=== PATIENT | female | born 1960 | race Caucasian/White ===

== ENCOUNTER 2019-04-02 18:10 | Inpatient (IN) | payer OTHER ==
[~2019-04-02] VITALS: Ht 165.1 cm; Wt 109.3 kg
[2019-04-02 18:30] VITALS: BP 158/95
--- NOTE | 2019-04-02 18:30 | NUR ---
EARLY CHILDHOOD ADMITTING NOTES RECEIVED PATIENT DIRECT ADMIT FROM [facility] ER VIA GURNEY ACCOMPANIED BY 2 EMT'S. ALERT AND ORIENTED X 4; APPEARS SHORT OF BREATH WITH RESPIRATIONS AT 20-24cpm. VERBALLY RESPONSIVE AND ABLE TO FOLLOW DIRECTIONS. ON OXYGEN AT 2L/MIN VIA NASAL CANNULA. VITAL SIGNS TAKEN. MD MADE AWARE OF ADMISSION. PLACED ON HIGH FOWLERS/SITTING POSITION. NO COMPLAINTS OF PAIN/DISCOMFORT OF THE TIME. CALL LIGHT IN REACH. NEEDS ATTENDED. WILL ENDORSE TO NOC SHIFT FOR CONTINUITY OF CARE.
[2019-04-02] MEDS ORDERED: LURA40TA PO (18:32)
[2019-04-02] MEDS ORDERED: HYDR12.5 PO (18:32)
[2019-04-02] MEDS ORDERED: ATOR40TA PO (18:32)
[2019-04-02] MEDS ORDERED: AMLO10TA7 PO (18:32)
[2019-04-02] MEDS ORDERED: ALBU8.5H8 IH (18:32)
[2019-04-02] MEDS ORDERED: FLUT16SP16 BNOSTRILS (18:32)
[2019-04-02] MEDS ORDERED: LOSA25TA27 PO (18:32)
--- NOTE | 2019-04-02 19:00 | NUR ---
MS RN OPENING NOTES Received patient, awake on Mcallister's position on bed. Admission routine done. Initial skin assessment done, patient claimed she has not skin issues identified, refused skin assessment at this time. Patient preferred to kept her pants on. Admission orders noted and carried out. IVF initiated as ordered. On O2 inhalation with SOB and dyspnea on exertion noted, saturating well. No complaints of pain made at this time. Kept on high-Mcallister's position on bed, call light within easy reach. Kept bed low and locked. On fall precautions. Provided BSC. Instructed patient on energy conservation. Will continue to monitor accordingly.
[2019-04-02] MEDS ORDERED: Z GUARD REMEDY 2 OZ OINT TP PRN (19:30)
[2019-04-02] MEDS ORDERED: MAGNESIUM HYDROXIDE 30 ML UDC PO PRN (19:30)
[2019-04-02] MEDS ORDERED: IV NS 0.9% 1,000 ML IV PRN (19:30)
[2019-04-02] MEDS ORDERED: MAG HYDROX/AL HYDROX/SIMETH 30 ML UDC PO PRN (19:30)
[2019-04-02] MEDS ORDERED: ONDANSETRON HCL/PF 4 MG/2 ML VIAL IVP PRN (19:30)
[2019-04-02] MEDS ORDERED: ACETAMINOPHEN 325 MG TABLET PO PRN (19:30)
[2019-04-02 20:00] VITALS: BP 145/88
[2019-04-02] MEDS ORDERED: DEXTROSE 50%-WATER 50 ML DISP.SYRIN IV PRN (20:00)
[2019-04-02] MEDS: AZITHROMYCIN 500 MG in IV D5W 250 ML IV SCH (20:16)
[2019-04-02] MEDS: methylPREDNISolone SOD SUCC 40 MG/ML VIAL IV SCH (20:26)
[2019-04-02] MEDS: IPRATROPIUM NEB FS 0.5 MG/2.5 ML AMPUL.NEB NEB SCH (21:15)
[2019-04-02] MEDS: ALBUTEROL FS 2.5 MG/0.5 ML VIAL.NEB NEB SCH (21:15)
[2019-04-02] MEDS: HYDROCODONE/APAP 5/325MG 1 EACH TABLET PO PRN (21:17)
--- NOTE | 2019-04-02 21:53 | NUR ---
MS RN NOTES MRSA specimen collected, source: Cece phelps. Called Lab for tile picker, spoke to Machining Supervisor Sumaya. Placed in specimen storage accordingly.
--- NOTE | 2019-04-02 22:09 | NUR ---
MS RN NOTES BS - 175mg/dl. Patient had eaten snacks 1 hr ago. Per patient, she does not take any insulin. Educated the patient the indication of this medication, benefits and possible S/E. Patient verbalized understanding, but insisted to refused meds. Instructed patient that another blood sugar check is scheduled before breakfast. Will continue to monitor the patient accordingly.
[2019-04-02] MEDS: BLOOD SUGAR DIAGNOSTIC 1 EACH STRIP IN SCH (22:29)
[2019-04-03] MEDS: BLOOD SUGAR DIAGNOSTIC 1 EACH STRIP IN SCH ×4 (06:36→22:19)
--- NOTE | 2019-04-03 07:09 | NUR ---
MS RN CLOSING NOTES Patient awake, on Mcallister's position on bed. With minimal labored breathing, on O2 via NC @ 2LPM, saturating well, no respiratory distress noted. All nursing needs attended, afebrile the whole shift. No new complaints made. Kept on bed clean, dry and comfortable. Call light within easy reach. Endorsed to the next shift.
[2019-04-03] MEDS: IPRATROPIUM NEB FS 0.5 MG/2.5 ML AMPUL.NEB NEB SCH ×3 (07:35→19:30)
[2019-04-03] MEDS: ALBUTEROL FS 2.5 MG/0.5 ML VIAL.NEB NEB SCH ×3 (07:35→19:30)
--- NOTE | 2019-04-03 07:47 | NUR ---
MS RN OPENING NOTE PATIENT IN BED RESTING COMFORTABLY. PATIENT BREATHING IS EVEN AND UNLABORED. PATIENT IN NO ACUTE DISTRESS. NO SOB NOTED. IV INTACT. HOB IS ELEVATED. SAFETY PRECAUTIONS IN PLACE. PATIENT BED IS LOCKED AND IN LOWEST POSITION. CALL LIGHT WITHIN REACH. WILL CONTINUE TO MONITOR.
[2019-04-03 08:00] VITALS: BP 130/78
[2019-04-03 08:08] LABS: BASOPHILS % (AUTO) 0.2 % (0.0-2.0); HEMATOCRIT 38 % (33-45); HEMOGLOBIN 12.5 g/dL (11.5-14.8); LYMPHOCYTES # (AUTO) 0.9 /CMM (0.8-4.8); LYMPHOCYTES % (AUTO) 8.5 % (20.0-44.0); MEAN CORPUSCULAR HGB CONC 33 g/dl (31.0-36.0); MEAN CORPUSCULAR VOLUME 91 fL (82-100); MONOCYTES # (AUTO) 0.3 /CMM (0.1-1.30); MONOCYTES % (AUTO) 2.7 % (2.0-12.0); NEUTROPHILS # (AUTO) 9.3 /CMM (1.8-8.9); NEUTROPHILS % (AUTO) 88.6 % (43.0-81.0); PLATELET COUNT (AUTO) 317 /CMM (150-450); RED BLOOD CELL COUNT(AUTO) 4.13 MIL/uL (4.0-5.2); WHITE BLOOD COUNT (AUTO) 10.4 K/uL (4.3-11.0)
[2019-04-03 08:23] LABS: BILIRUBIN,TOTAL 0.2 mg/dL (0.2-1.0); CALCIUM, SERUM 8.6 mg/dL (8.5-10.1); CREATININE 0.9 mg/dL (0.6-1.3); MAGNESIUM 1.9 mg/dL (1.8-2.4); PHOSPHORUS 2.8 mg/dL (2.5-4.9); TOTAL PROTEIN, SERUM 7.3 g/dL (6.4-8.2)
[2019-04-03 08:29] LABS: THYROID STIMULATING HORMONE 0.247 uIU/mL (0.358-3.74)
[2019-04-03] MEDS: methylPREDNISolone SOD SUCC 40 MG/ML VIAL IV SCH ×3 (09:28→17:11)
[2019-04-03] MEDS: FLUTICASONE PROPIONATE 16 GM BOTTLE NS SCH ×2 (09:29→17:11)
[2019-04-03] MEDS: AMLODIPINE BESYLATE 10 MG TABLET PO SCH (09:30)
[2019-04-03] MEDS: LOSARTAN POTASSIUM 25 MG TABLET PO SCH (09:30)
--- NOTE | 2019-04-03 10:08 | NUR ---
MS RN NOTE PATIENT WALKED WITH PT. PER PATIENT STATED THAT SHE HAD A BRIEF MOMENT OF LAPSE IN VISION WITH SHORTNESS OF BREATH. VITAL SIGNS TAKEN, WNL. PATIENT SATURATING 99% SPO2. PATIENT NOW RESTING IN BED, WITH MINIMAL LABORED BREATHING ON OXYGEN NC 2L. NOTIFIED VENKAT MORRIS. PER VENKAT ORDER FOR HEAD CT WITH OUT CONTRAST AND ORTHOSTATIC BP MONITOR.
[2019-04-03] MEDS: INSULIN REGULAR, HUMAN 100 UNIT/ML 3 ML VIAL SQ PRN ×3 (11:56→22:21)
[2019-04-03 12:30] VITALS: BP_SYST 139; BP_SYST 140; BP_SYST 145; BP_DIAS 74; BP_DIAS 83; BP_DIAS 87
--- NOTE | 2019-04-03 13:23 | NUR ---
SPOKE WITH VENKAT MORRIS REGARDING RESULT OF CT HEAD WITHOUT CONTRAST AND ORTHOSTATIC BP MEASURING. PER VENKAT CONTINUE TO DC IV FLUIDS. PATIENT IN NO ACUTE DISTRESS. WILL CONTINUE TO MONITOR AND FOLLOW THROUGH WITH ORDERS.
[2019-04-03 16:04] VITALS: BP 119/69
[2019-04-03] MEDS: ATORVASTATIN 40 MG TABLET PO SCH (17:11)
--- NOTE | 2019-04-03 18:39 | NUR ---
MS RN CLOSING NOTE PATIENT IN BED , RESTING COMFORTABLY. PATIENT IN NO ACUTE DISTRESS. PATIENT BREATHING IS EVEN WITH MINIMAL LABORED BREATHING. PATIENT ON OXYGEN NC AT 2L SATURATING >96% SPO2. PATIENT IV INTACT. PATIENT ABLE TO VERBALIZE NEEDS, NEEDS AND CONCERNS WERE ADDRESSED THROUGHOUT SHIFT. PATIENT KEPT CLEAN, DRY, AND COMFORTABLE THROUGHOUT SHIFT. PATIENT EXTREMITIES OFFLOADED ON PILLOWS. SAFETY PRECAUTIONS IN PLACE. HOB IS ELEVATED. PATIENT BED IS LOCKED AND IN LOWEST POSITION. CALL LIGHT WITHIN REACH. WILL ENDORSE CARE TO PM SHIFT FOR SERG.
[2019-04-03 20:00] VITALS: BP 123/66
[2019-04-03] MEDS: AZITHROMYCIN 500 MG in IV D5W 250 ML IV SCH (20:00)
--- NOTE | 2019-04-03 20:00 | NUR ---
received pt in bed, asleep, arousable ,no acute distress, denies any pain, only feeling tire and not slept for few days. kept on oxygen 2 liters, all needs attended. call light at reached, heplock intact and patent.
--- NOTE | 2019-04-04 06:15 | NUR ---
pt called complaining of anxiety , stated that her "bipolar self is going to explode" she takes paxil 10 mg at home and is not reconciled during this admission. page Epic, DR. Grider and made aware, pt vss, bp 118/62 hr 66 spo2 100 on 2 liters oxygen. awaiting for call back. pt encourage depp breathing to help her relax while awaiting for md call back.
[2019-04-04 06:54] LABS: BASOPHILS % (AUTO) 0.1 % (0.0-2.0); HEMATOCRIT 40 % (33-45); HEMOGLOBIN 12.8 g/dL (11.5-14.8); LYMPHOCYTES % (AUTO) 9.2 % (20.0-44.0); MEAN CORPUSCULAR HGB CONC 32 g/dl (31.0-36.0); MEAN CORPUSCULAR VOLUME 92 fL (82-100); MONOCYTES # (AUTO) 0.5 /CMM (0.1-1.30); MONOCYTES % (AUTO) 4.3 % (2.0-12.0); NEUTROPHILS # (AUTO) 9.6 /CMM (1.8-8.9); NEUTROPHILS % (AUTO) 86.4 % (43.0-81.0); PLATELET COUNT (AUTO) 339 /CMM (150-450); RED BLOOD CELL COUNT(AUTO) 4.32 MIL/uL (4.0-5.2); WHITE BLOOD COUNT (AUTO) 11.1 K/uL (4.3-11.0)
[2019-04-04 07:17] LABS: CALCIUM, SERUM 8.6 mg/dL (8.5-10.1); CREATININE 0.8 mg/dL (0.6-1.3); POTASSIUM 4.3 mmol/L (3.5-5.1)
[2019-04-04] MEDS: ALBUTEROL FS 2.5 MG/0.5 ML VIAL.NEB NEB SCH ×3 (07:37→19:30)
[2019-04-04] MEDS: IPRATROPIUM NEB FS 0.5 MG/2.5 ML AMPUL.NEB NEB SCH ×3 (07:37→19:30)
--- NOTE | 2019-04-04 08:00 | NUR ---
RN NOTES RECEIVED PATIENT IN THE BED A/O X4. PATIENT ANXIOUS, BECAUSE SINCE YESTERDAY NOT TAKEN PSYCH MEDICATION AND HAVE NOT FAMILY TO GET MEDICATION FROM HOME. NOTIFIED SUPERVISOR PIPELINE VENKAT AND GET PAXIL 10 MG PO DAILY AND ANXIETY ATIVAN, ALSO PATIENT WAS COMPLAINING OF GENERALIZED PAIN, V/S TAKEN STABLE. PATIENT AMBULATORY. PATIENT SOB WERE GETTING BREATHING Tx BY RT, IV ACCESS ON RIGHT HAND INTACT. NEEDS ATTENDED AND ANTICIPATED, CALL LIGHT WITHIN TO REACH, SAFETY PRECAUTION MAINTAINED ALL THE TIME.
[2019-04-04 08:13] VITALS: BP 140/88
[2019-04-04] MEDS: BLOOD SUGAR DIAGNOSTIC 1 EACH STRIP IN SCH ×4 (08:15→22:15)
[2019-04-04] MEDS ORDERED: PARO10TA86 PO (08:23)
[2019-04-04] MEDS ORDERED: LORA-259 PO (08:23)
[2019-04-04] MEDS: methylPREDNISolone SOD SUCC 40 MG/ML VIAL IV SCH ×3 (08:34→17:11)
[2019-04-04] MEDS: LOSARTAN POTASSIUM 25 MG TABLET PO SCH (08:35)
[2019-04-04] MEDS: AMLODIPINE BESYLATE 10 MG TABLET PO SCH (08:35)
[2019-04-04] MEDS: FLUTICASONE PROPIONATE 16 GM BOTTLE NS SCH ×2 (08:36→17:12)
[2019-04-04] MEDS: HYDROCODONE/APAP 5/325MG 1 EACH TABLET PO PRN ×2 (08:43→14:49)
--- NOTE | 2019-04-04 08:43 | NUR ---
RN NOTES ADMINISTERED NARCO 5/325 MG PO PRN FOR GENERALIZED PAIN 03/30 PER PATIENT REQUEST, V/S TAKEN BP-140/88, P-75, R-20, ENCOURAGED TO INCREASE FLUID INTAKE. CONTINUED MONITORING.
[2019-04-04] MEDS: PAROXETINE HCL 10 MG TABLET PO SCH (09:01)
--- NOTE | 2019-04-04 12:00 | NUR ---
RN NOTES BS-170 MG/DL COVERAGE GIVEN, PATIENT TAKEN SHOWER. PATIENT TOLERATED LUNCH WELL.
[2019-04-04] MEDS: LORAZEPAM 1 MG TABLET PO PRN (12:36)
[2019-04-04] MEDS: INSULIN REGULAR, HUMAN 100 UNIT/ML 3 ML VIAL SQ PRN ×3 (12:36→22:16)
--- NOTE | 2019-04-04 12:36 | NUR ---
RN NOTES ADMINISTERED ATIVAN 1 MG PO PRN FOR ANXIETY PER PATIENT REQUEST V/S TAKEN BP-115/72, P-80, CONTINUED MONITORING. ALSO ADMINISTERED SCHEDULED MEDICATION.
--- NOTE | 2019-04-04 14:49 | NUR ---
RN NOTES ADMINISTERED NARCO 5/325 MG PO PRN FOR GENERALIZED PAIN 02/27 PER PATIENT REQUEST V/S TAKEN BP 118/67, P-81, ALSO PATIENT VERY ANXIOUS, CALL LIGHT WITHIN TO REACH. SAFETY PRECAUTION MAINTAINED ALL THE TIME.
--- NOTE | 2019-04-04 16:00 | NUR ---
RN NOTES MEDICATION WERE ADMINISTERED FOR PAIN EFFECTIVE PATIENT RESTING IN THE [place] OF THE BED, V/S STABLE BP 127/67, P-92. CONTINUED MONITORING
[2019-04-04 16:06] VITALS: BP 127/67
[2019-04-04] MEDS: ATORVASTATIN 40 MG TABLET PO SCH (17:11)
--- NOTE | 2019-04-04 18:30 | NUR ---
RN NOTES PATIENT STABLE RESTING IN THE BED, REFUSED PAIN, ADMINISTERED SCHEDULED MEDICATION, BS-195 MG/DL, COVERAGE GIVEN, CALL LIGHT WITHIN TO REACH, SAFETY PRECAUTION MAINTAINED ALL THE TIME, ENDORSED ONCOMING NURSE FOLLOW PLAN OF CARE.
--- NOTE | 2019-04-04 19:05 | NUR ---
MS RN NOTES RECEIVED PATIENT IN THE BED ASLEEP BUT EASILY AWOKEN VERBALLY RO BY TOUCH. A/O X4 AND ABLE TO MAKE NEEDS KNOWN. RESPIRATIONS EVEN AND UNLABORED WITH NO S/S OF ACUTE DISTRESS OR SOB NOTED. NO COMPLAINTS OF PAIN AT THIS TIME. PT WITH IV ACCESS ON RIGHT HAND, PATENT AND INTACT. SAFETY MEASURES IN PLACE WITH BED IN LOWEST LOCKED POSITION WITH SIDE RAILS UP X2. CALL LIGHT WITHIN REACH. WILL CONTINUE TO MONITOR.
[2019-04-04 20:00] VITALS: BP 117/65
[2019-04-04] MEDS ORDERED: AZITHROMYCIN 250 MG TABLET PO SCH (20:00)
[2019-04-05] MEDS: HYDROCODONE/APAP 5/325MG 1 EACH TABLET PO PRN (01:22)
[2019-04-05] MEDS: LORAZEPAM 1 MG TABLET PO PRN (03:42)
[2019-04-05] MEDS: INSULIN REGULAR, HUMAN 100 UNIT/ML 3 ML VIAL SQ PRN ×2 (06:31→12:18)
[2019-04-05] MEDS: BLOOD SUGAR DIAGNOSTIC 1 EACH STRIP IN SCH ×2 (06:33→12:19)
[2019-04-05 06:50] LABS: BASOPHILS % (AUTO) 0.1 % (0.0-2.0); HEMATOCRIT 40 % (33-45); HEMOGLOBIN 13.1 g/dL (11.5-14.8); LYMPHOCYTES # (AUTO) 1.5 /CMM (0.8-4.8); LYMPHOCYTES % (AUTO) 12.7 % (20.0-44.0); MEAN CORPUSCULAR HGB CONC 32 g/dl (31.0-36.0); MEAN CORPUSCULAR VOLUME 92 fL (82-100); MONOCYTES # (AUTO) 0.7 /CMM (0.1-1.30); MONOCYTES % (AUTO) 6.4 % (2.0-12.0); NEUTROPHILS # (AUTO) 9.2 /CMM (1.8-8.9); NEUTROPHILS % (AUTO) 80.8 % (43.0-81.0); PLATELET COUNT (AUTO) 333 /CMM (150-450); RED BLOOD CELL COUNT(AUTO) 4.41 MIL/uL (4.0-5.2); WHITE BLOOD COUNT (AUTO) 11.4 K/uL (4.3-11.0)
--- NOTE | 2019-04-05 06:56 | NUR ---
MS RN NOTES PT IN THE BED AWAKE AND ABLE TO MAKE NEEDS KNOWN. A/O X4. RESPIRATIONS EVEN AND UNLABORED WITH NO S/S OF ACUTE DISTRESS OR SOB NOTED THROUGHOUT SHIFT. NO COMPLAINTS OF PAIN NOTED AT THIS TIME. PT WITH IV ACCESS ON RIGHT HAND, PATENT AND INTACT. SAFETY MEASURES IN PLACE WITH BED IN LOWEST LOCKED POSITION WITH SIDE RAILS UP X2. CALL LIGHT WITHIN REACH. WILL ENDORSE TO ONCOMING NURSE FOR SERG.
[2019-04-05 06:57] LABS: CALCIUM, SERUM 8.5 mg/dL (8.5-10.1); CREATININE 0.9 mg/dL (0.6-1.3); POTASSIUM 4.1 mmol/L (3.5-5.1)
--- NOTE | 2019-04-05 07:28 | NUR ---
RN MS OPENING NOTES Patient received on 2L nasal cannula, no sob noted, patient denies pain at this time. Patient remains a/o x3 with Right hand #20 SL. Patient able to verbally make needs known, bed at the lowest setting, call light within reach, side rails up x2.
[2019-04-05 08:14] VITALS: BP 139/80
[2019-04-05] MEDS: PAROXETINE HCL 10 MG TABLET PO SCH (08:16)
[2019-04-05] MEDS: FLUTICASONE PROPIONATE 16 GM BOTTLE NS SCH (08:16)
[2019-04-05] MEDS: methylPREDNISolone SOD SUCC 40 MG/ML VIAL IV SCH (08:16)
[2019-04-05 08:17] VITALS: BP 139/80
[2019-04-05] MEDS: LOSARTAN POTASSIUM 25 MG TABLET PO SCH (08:17)
[2019-04-05] MEDS: AMLODIPINE BESYLATE 10 MG TABLET PO SCH (08:17)
[2019-04-05] MEDS: IPRATROPIUM NEB FS 0.5 MG/2.5 ML AMPUL.NEB NEB SCH (09:01)
[2019-04-05] MEDS: ALBUTEROL FS 2.5 MG/0.5 ML VIAL.NEB NEB SCH (09:01)
[2019-04-05] MEDS ORDERED: AZIT250T PO (12:31)
[2019-04-05] MEDS ORDERED: PRED5TAB48 PO (12:31)
[2019-04-05] MEDS ORDERED: PRED20TA PO (12:31)
--- NOTE | 2019-04-05 14:22 | NUR ---
RN MS CLOSING/ DISCHARGE NOTES Patient discharged on room air, no sob noted, no pain at this time. Patient has all the paper work for discharge signed and in her possession. IV removed with no bleeding noted. Patient stated that she will go to her PCP and get a blood sugar machine so she can check her blood consistently. Patient going home with family member to drive her back home.
== END 2019-04-05 14:10 | disposition home or self-care (01) | DRG 141 ==
LOC: TELE 18:10 → MED 20:59
PROVIDERS: ADMIT Nurse Practitioner Acute Care; ATTEND Nurse Practitioner Acute Care
DX: J45.901 Unspecified asthma with (acute) exacerbation (principal); N17.0 Acute kidney failure with tubular necrosis; E44.0 Moderate protein-calorie malnutrition; E11.9 Type 2 diabetes mellitus without complications; E78.5 Hyperlipidemia, unspecified; J20.9 Acute bronchitis, unspecified; I10 Essential (primary) hypertension; Z80.1 Family history of malignant neoplasm of trachea, bronchus and lung; Z85.42 Personal history of malignant neoplasm of other parts of uterus; Z90.710 Acquired absence of both cervix and uterus; Z79.51 Long term (current) use of inhaled steroids; Z79.899 Other long term (current) drug therapy; Z72.0 Tobacco use; E05.90 Thyrotoxicosis, unspecified without thyrotoxic crisis or storm
CPT/HCPCS: 36415; 70450-TC; 80048-TC; 80053-TC; 80061-TC; 82962-TC; 83735-TC; 84100-TC; 84439-TC; 84443-TC; 85025-TC; 87081-TC; 93307-TC; 93880-TC; 94799-TC; 97116-TC; 97530-TC; A4623; G0378; J0456; J1815; J2920; J7030; J7060